=== PATIENT | female | born 1960 | race Caucasian/White ===

== ENCOUNTER → 2017-04-06 | Outpatient (CLI) | payer MEDICAID | LOC: FIMAGING 12:51 | DX: N64.4 Mastodynia (principal) | CPT/HCPCS: G0204 ==

== ENCOUNTER 2017-07-11 03:21 | Emergency (ER) | payer MEDICAID ==
--- NOTE | 2017-07-11 03:25 | EDPHY ---
H & P Time Seen by Provider: 07/11/17 03:23 HPI/ROS: Chief Complaint: Irvin catheter problem HPI: 56-year-old woman with a history of chronic osteoarthritis and has a chronic Irvin catheter for year secondary to incontinence. Patient states that her Irvin catheter is not been draining properly since it was replaced 2-3 days ago. She is currently residing at [facility]. She is wheelchair-bound. Denies any fevers or chills. No abdominal pain or pelvic pain. No nausea or vomiting. No chest pain or shortness of breath. ROS: 10 point Review of Systems is negative except as noted in the HPI. Social History: No smoking, no alcohol, no recreational drug use Family History: non-contributory Physical Exam: Gen: Awake, Alert, No Distress HEENT: Nose: no rhinorrhea Eyes: PERRLA, EOMI Mouth: Moist mucosa Neck: Supple, no JVD Chest: nontender, lungs clear to auscultation Heart: S1, S2 normal, no murmur Abd: Soft, non-tender, no guarding Back: no CVA tenderness, no midline tenderness, patient has a left sacral pressure ulcer which is chronic, no erythema or discharge at this time. Ext: no edema, non-tender Skin: no rash Neuro: CN II-XII intact, Sensation grossly intact, Strength 5/5 in bilateral upper and lower extremities Medical Decision Making ED Course/Re-evaluation: Irvin catheter changed she without any problems. There are no findings suggestive acute urinary tract infection. Vital signs are unremarkable. Patient is discharged in the care of the police department. Departure - Departure Disposition: Law Enforcement/Court/Nursing Home Clinical Impression: Irvin catheter problem, Sacral decubitus ulcer Condition: Good Instructions: Irvin Catheter Placement and Care (ED), Pressure Ulcer (ED) Additional Instructions: MEDICALLY CLEAR FOR [facility] Referrals: Patient,NotPresent [Primary Care Provider] - As per Instructions
[2017-07-11 04:25] VITALS: TEMP 96.8
[2017-07-11 05:18] VITALS: BP 151/65; PULSE 66; RESP 18; O2SAT 94
== END 2017-07-11 04:45 | disposition home or self-care (01) ==
LOC: EDUNIT#
PROC: 0T9B70Z Drainage of Bladder with Drainage Device, Via Natural or Artificial Opening (ICD-10-PCS; principal; 2017-07-11)
DX: T83.091A Other mechanical complication of indwelling urethral catheter, initial encounter (principal); L89.159 Pressure ulcer of sacral region, unspecified stage; Y73.2 Prosthetic and other implants, materials and accessory gastroenterology and urology devices associated with adverse incidents